=== PATIENT | female | born 1980 | race Caucasian/White ===

== ENCOUNTER 2024-03-09 15:29 | Inpatient (IN) | payer OTHER, SELFPAY ==
[2024-03-09] VITALS (11 sets, daily range): BP systolic 95–113; BP diastolic 59–69; BMI 22.6
--- NOTE | 2024-03-09 08:20 | ED.GENMED ---
History of Present Illness
General
Chief Complaint: Abdominal Pain
Source: patient
Time Seen by Provider: 03/09/24 08:10
Travel History
Have you had any contact with someone who has COVID-19?: No
Do you have any symptoms of coronavirus? Fever > 100 degrees, chills, cough, shortness of breath, sore throat, loss of taste or smell, muscle aches, or headache?: No
History of Present Illness
History of Present Illness:
43-year-old female with history of Crohn's disease presents complaining of worsening abdominal pain nausea and diarrhea over the past several weeks. She saw edge sander a week ago and they continue her mesalamine. She denies any blood in
the diarrhea. She notes fatigue and weight loss as well. She notes diffuse abdominal pain. No other complaints at this time
Phy Exam
Physical Exam
Physical Exam:
General: Well-appearing female no acute respiratory distress
HEENT: Normocephalic atraumatic neck is supple
Heart: Regular rate and rhythm no murmurs
Lungs: Clear no wheeze or rales
Abdomen is soft tender to palpation in the periumbilical region. Nondistended no guarding rebound normal bowel sound
Extremities: No cyanosis
Course
Orders/Labs/Results
Orders:
Orders
03/09/24 08:18
CT Abd/pel W Iv And Oral Contr Urgent
Comment:
Reason For Exam: abdominal pain, crohns
Iohexol [Omnipaque] See Protocol PO NOW STA
Test Result ONCE
03/09/24 09:06
Complete Blood Count/With Diff Urgent
Comprehensive Metabolic Panel Urgent
HCG, Serum Qualitative Screen Urgent
Lipase Urgent
Urinalysis Reflex To Culture Urgent
Date Specimen was Collected: 03/09/24
Time Specimen was Collected: 08:38
Urine Microscopic Reflex Cult Urgent
Urine Culture Urgent
JAIME Source: U
Specimen Description:
Date Specimen was Collected: 03/09/24
Time Specimen was Collected: 08:38
03/09/24 13:01
STOOL [C difficile Antigen & Toxins] Urgent
JAIME Source: Feces/Stool
Specimen Description:
Date Specimen was Collected: 03/09/24
Time Specimen was Collected: 14:13
Stool Culture Urgent
JAIME Source: Feces/Stool
Specimen Description:
Date Specimen was Collected: 03/09/24
Time Specimen was Collected: 14:13
03/09/24 13:05
0.9% Sodium Chloride 1000 ml [Nss] 1,000 ml IV BOLUS
03/09/24 13:46
Ova & Parasites Giardia/Crypto AG [Giardia/Cryptosporidium Ag] Urgent
JAIME Source: Feces/Stool
Specimen Description:
Date Specimen was Collected: 03/09/24
Time Specimen was Collected: 14:13
Yersinia Culture-Stool Urgent
JAIME Source: Feces/Stool
Specimen Description:
Date Specimen was Collected: 03/09/24
Time Specimen was Collected: 14:13
Abnormal Lab Results
03/09/24
09:06
WBC 15.9 H 10^3/uL
(4.8-10.8)
RBC 3.56 L 10^6/uL
(4.20-5.40)
Hgb 10.9 L g/dL
(12.0-16.0)
Hct 31.4 L %
(37.0-47.0)
Abs Immat Gran (auto) 0.1 H 10^3/uL
(0-0.05)
Absolute Neuts (auto) 13.4 H 10^3/uL
(1.4-6.5)
Absolute Monos (auto) 0.9 H 10^3/uL
(0.1-0.6)
Immature Gran % 0.6 H %
(0-0.5)
Neutrophils % 84.5 H %
(42.2-75.2)
Lymphocytes % 7.5 L %
(20.5-51.1)
Sodium 131 L mmol/L
(135-145)
Ur Occult Blood Reflex 3+ A
(Negative)
Urine Nitrite (Reflex) Positive A
(Negative)
Urine Bacteria (Reflex) Many A
(Negative)
03/09/24 09:06
03/09/24 09:06
Vital Signs
Initial and Last Documented VS:
Initial Vital Signs
Temp Pulse Resp BP Pulse Ox
98.0 F 90 16 95/69 100
03/09/24 08:05 03/09/24 08:05 03/09/24 08:05 03/09/24 08:05 03/09/24 08:05
Last Documented Vital Signs
Temp Pulse Resp BP Pulse Ox
98.0 F 75 16 100/62 98
03/09/24 08:05 03/09/24 08:35 03/09/24 08:35 03/09/24 13:00 03/09/24 13:00
MDM/Problems Addressed
Differential Diagnosis Includes:
Abdominal pain. History of Crohn's. Differential could include flare of Crohn disease versus constipation versus viral illness
Will check labs. CT with oral and IV contrast pending.
*Critical Care Note
Total Time (30-74mins, 75-104mins- exclusive of procedures): Not Applicable
Update Note
Update Note:
CT shows diffuse colonic inflammation as well as inflammation of the terminal ileum suggestive of Crohn's flare. White blood cell count is 15.9. Discussed with GI who saw the patient. Stool studies ordered. Fluids ordered. Will admit to
hospital for Crohn's flare
ED Attending Note
-
Portions of this chart may have been created with voice recognition software.� Occasional wrong word or��sound alike� substitutions may have occurred due to the inherent limitations of voice recognition software.
Discharge Plan
Departure
Patient Disposition: Admit
Date of Disposition: 03/09/24
Time of Disposition: 14:35
Admit to: Telemetry
Presentation/result/management discussed w/ accepting MD/DO: Hospitalist
Discharge Problem:
Abdominal pain
Prescriptions:
No Action
loperamide 2 mg Capsule
2 mg PO QID PRN (Reason: diarrhea)
bisoprolol fumarate 10 mg Tablet
10 mg PO QPM
losartan-hydrochlorothiazide 50-12.5 mg Tablet
1 tab PO QPM
drospirenone-ethinyl estradiol [Vestura (28)] 3-0.02 mg Tablet
1 tab PO DAILY@1999
Visbiome 112.5 billion cell Capsule
1 cap PO BID
cholecalciferol (vitamin D3) 50 mcg (2,000 unit) Tablet
50 mcg PO DAILY PRN (Reason: supplement)
mesalamine 400 mg capsule (with del rel tablets)
800 mg PO TID
Muscle Spasm Herbal Supplement
2 tab PO DAILYPRN PRN (Reason: spasms)
Patient Comments:
03/09/2024, pt. states that it is called 'N[place]' and it is for 'spasms'.
Referrals:
PRIVATE,PHYSICIAN [Family Provider] -
Interventions
Interventions:
*Risk Screen - Suicide Last Done: 03/09/24 08:30
*General Assessment Last Done: 03/09/24 08:30
*Neglect/Abuse Screening Last Done: 03/09/24 08:30
ED- Fall Risk Assessment Last Done: 03/09/24 08:30
*ED COVID-19 Vaccine History Last Done: 03/09/24 08:05
GT-Qsszbj-Lrjwvkbnzj Assessment Last Done: 03/09/24 08:30
Discharge Date and Time
Print Language: Cape Verdean
[2024-03-09] MEDS: OMNIPAQUE 50 ML PO (08:35)
[2024-03-09 09:17] LABS: Urine Albumin Negative (Neg - Trace); Urine Bilirubin Negative (Negative); Urine Character Clear (Clear); Urine Color Yellow; Urine Glucose Negative (Negative); Urine Ketone Negative (Negative); Urine Leukocyte Negative (Negative); Urine Nitrite Positive (Negative); Urine Occult Blood 3+ (Negative); Urine Specific Gravity 1.015 (<1.030); Urine Urobilinogen Negative (Neg - 1+)
[2024-03-09 09:21] LABS: % Basophils 0.4 % (0-2); % Eosinophils 1.1 % (0-6); % Immature Granulocytes 0.6 % (0-0.5); % Lymphocytes 7.5 % (20.5-51.1); % Monocytes 5.9 % (1.7-9.3); % Neutrophils 84.5 % (42.2-75.2); Absolute Basophils 0.1 10^3/uL (0-0.2); Absolute Eosinophils 0.2 10^3/uL (0-0.7); Absolute Immature Granulocytes 0.1 10^3/uL (0-0.05); Absolute Lymphocytes 1.2 10^3/uL (1.2-3.4); Absolute Monocytes 0.9 10^3/uL (0.1-0.6); Absolute Neutrophils 13.4 10^3/uL (1.4-6.5); Hematocrit 31.4 % (37.0-47.0); Hemoglobin 10.9 g/dL (12.0-16.0); Mean Corp Hgb Conc. 34.7 g/dL (33.0-37.0); Mean Corpuscular Hgb 30.6 pg (27.0-31.0); Mean Corpuscular Volume 88.2 fL (81.0-99.0); Mean Platelet Volume 8.7 fL (7.4-10.4); Nucleated Red Blood Cells % 0 %; Platelet Count 388 10^3/uL (130-400); Red Blood Cell Count 3.56 10^6/uL (4.20-5.40); Red Cell Dist. Width 13.3 % (11.5-14.5); White Blood Cell Count 15.9 10^3/uL (4.8-10.8)
[2024-03-09 09:28] LABS: HCG, Serum Qualitative Screen Negative
[2024-03-09 09:33] LABS: ALT (SGPT) 15 U/L (0-35); AST (SGOT) 15 U/L (14-36); Alkaline Phosphatase 72 U/L (38-126); Blood Urea Nitrogen 16 mg/dl (7-17); Calcium 9.4 mg/dl (8.4-10.2); Carbon Dioxide 22 mmol/L (22-30); Chloride 103 mmol/L (98-107); Estimated Creatinine Clearance 87 ml/min; Glucose 94 mg/dl (70-99); Lipase 63 U/L (23-300); Potassium 3.8 mmol/L (3.5-5.1); Sodium 131 mmol/L (135-145); Total Bilirubin 0.5 mg/dl (0.2-1.3); Total Protein 7.1 g/dl (6.3-8.2); eGFR > 60.00
[2024-03-09 09:53] LABS: Urine Bacteria Many (Negative)
[2024-03-09 09:56] LABS: Urine Red Blood Cell 0-2 /HPF (0-2); Urine White Cell 0-2 /HPF (0-5)
[2024-03-09] MEDS: NSS 1000 IV (13:18)
--- NOTE | 2024-03-09 14:20 | CON.GI ---
Addendum entered and electronically signed by Fransisco Carter MD 03/09/24 15:05:
Patient seen and examined with video senior support analyst service, agree with respecters note. The patient is a 43-year-old female, [facility] [place] with history of Crohn's of the small and large intestine. She was on 2.4 g of mesalamine
daily as maintenance, though recently had to decrease her medications. The past several weeks she has been noticing increasing frequency, with crampy abdominal pain, 10-15 bowel movements a day with some mild weight loss. She did see a
quality control lab technician about this for a few and is planned on having endoscopy and colonoscopy later this month. She denies any fever, chills, recent antibiotics or sick contacts. She never had any significant flares in the past several years and has
had quiescent disease. She is no history of strictures or fistulas. Currently exam she has mild diffuse tenderness but no rebound or guarding, has a leukocytosis and mild anemia. CT scan shows ileocolitis without complication. Most likely
etiology is Crohn's flare, especially given her decreased medications and length of symptoms, though superimposed infection is not excluded. For now we will start Flagyl, IV fluids, and check stool studies, hopefully at least some back tomorrow at
which point would likely start steroids and even possible discharge given mild to moderate flare, with outpatient follow-up already in place.
Original Note:
Consultation
-
Date/Time Consultation Requested: 03/09/241399
Date/Time Consultation Performed: 03/09/241399
Requesting Provider: ZACHARY Galeas
Performing Provider: Dr. Carter/SUSHANT Kebede
Reason for Consultation: diarrhea, Crohns
Medical History
Chief Complaint / HPI
Chief Complaint: diarrhea, pain, crohns
History of Present Illness:
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
a day as well as probiotics. She had medications available to her up until approximately 2-1/2 weeks ago when she had to dose reduce because of lack of meds. She then started taking 400 mg 3 times a day. At that time she started to have increase
in bowel movements approximately 10-15 a day that were watery and brown in color. She did also start to develop subjective fevers and chills as well as aching abdominal discomfort that would improve with defecation. She did not have a thermometer
therefore she was unable to check her temperature. She denies any nausea, vomiting, melena, hematochezia, mucoid stools, dysphagia or odynophagia. No early satiety or unintentional weight loss. She has no sick contacts, changes in medications,
antibiotics, icsx-nls-emardai supplements, raw or spoiled food or travel. The patient did arrange to see Dr. Amy Arce (GI in [facility]) and has an endoscopy scheduled on 03/31/2024 and colonoscopy schedule 04/04/2024. She states that
she was prescribed esomeprazole as well as mesalamine 800 mg 3 times daily that needs to be picked up at [facility]. The patient was able to go back to her normal dose of mesalamine 800 mg 3 times daily approximately 5 days ago however she has not had any
improvement in her symptoms. Because of persistent diarrhea 10-15 bowel movements a day and dizziness she proceeded to the emergency room.
Past Medical History
Past Medical History: GERD, HTN and Other (Crohn's of the small and large intestine (Diagnosed 8 years ago), Uterine fibroid)
Past Surgical History:
Social History
Tobacco: Smoker
Alcohol: None
Drug: None
Living: Other ([place] refugee living with support system here in , sister)
Family History
Family History: Other (No family history of colon cancer or inflammatory bowel disease)
Allergies / Home Medications
Allergy/AdvReac Type Severity Reaction Status Date / Time
No Known Allergies Allergy Unverified 03/09/24 08:05
�Medication �Instructions �Recorded
Lactobac no.2-Bifidobac no.1-S. 1 cap PO BID 03/09/24
thermo 112.5 billion cell capsule
(Visbiome)
Muscle Spasm Herbal Supplement 2 tab PO DAILYPRN PRN spasms 03/09/24
bisoprolol fumarate 10 mg tablet 10 mg PO QPM 03/09/24
cholecalciferol (vitamin D3) 50 50 mcg PO DAILY PRN supplement 03/09/24
mcg (2,000 unit) tablet
drospirenone 3 mg-ethinyl 1 tab PO DAILY@199903/09/24
estradiol 0.02 mg tablet (Vestura
(28))
loperamide 2 mg capsule 2 mg PO QID PRN diarrhea 03/09/24
losartan 50 mg-hydrochlorothiazide 1 tab PO QPM 03/09/24
12.5 mg tablet
mesalamine 400 mg capsule (with 800 mg PO TID 03/09/24
delayed release tablets inside)
Review of Systems
-
All other systems: A 12 pt ROS was Negative except as stated above in HPI
Vital Signs
Temp Pulse Resp BP Pulse Ox
98.0 F 75 16 100/62 98
03/09/24 08:05 03/09/24 08:35 03/09/24 08:35 03/09/24 13:00 03/09/24 13:00
Physical Exam
Exam
General: No Apparent Distress
HEENT: Anicteric
Respiratory: Clear
Cardiac: Regular Rhythm
GI: Soft, Non Distended, Normal Bowel Sounds and Tender (Mild diffuse tenderness)
Musculoskeletal: No Edema
Skin: Warm and Dry
Neuro: AO x 3
Psych: Calm
Results
WBC 15.9 10^3/uL (4.8-10.8) H 03/09/24 09:06
Hgb 10.9 g/dL (12.0-16.0) L 03/09/24 09:06
Hct 31.4 % (37.0-47.0) L 03/09/24 09:
MCV 88.2 fL (81.0-99.0) 03/09/24 09:06
Plt Count 388 10^3/uL (130-400) 03/09/24 09:06
Absolute Neuts (auto) 13.4 10^3/uL (1.4-6.5) H 03/09/24 09:06
Sodium 131 mmol/L (135-145) L 03/09/24:06
Potassium 3.8 mmol/L (3.5-5.1) 03/09/24 09:
Chloride 103 mmol/L (98-107) 03/09/24 09:06
Carbon Dioxide 22 mmol/L (22-30) 03/09/24 09:06
BUN 16 mg/dl (7-17) 03/09/24 09:06
Creatinine 0.8 mg/dL (0.6-1.0) 03/09/24 09:06
Calcium 9.4 mg/dl (8.4-10.2) 03/09/24 09:06
Total Bilirubin 0.5 mg/dl (0.2-1.3) 03/09/24 09:06
AST 15 U/L (14-36) 03/09/24 09:06
ALT 15 U/L (0-35) 03/09/24 09:06
Alkaline Phosphatase 72 U/L (38-126) 03/09/24 09:06
Lipase 63 U/L (23-300) 03/09/24 09:06
Diagnostic Image Results:
CT abdomen and pelvis with oral and IV contrast 03/09/2024:
Diffusely abnormal colon and 8 cm of the terminal ileum. Consistent with the history of Crohn's disease. Mildly prominent but normal sized mesenteric lymph nodes.
No abscess. No free fluid or fluid collection. No free air. Appendix within the limits of normal.
Mild hepatosplenomegaly.
Uterine fibroids, known.
Electronically signed by Bing Gaming MD 03/09/2024 12:27 P
Prior GI Procedures:
EGD: Never had
Colonoscopy: Approximately 6 years ago in [facility]. Showed Crohn's of the small intestine and large intestine.
Assessment / Plan
-
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
a day as well as probiotics. She had medications available to her up until approximately 2-1/2 weeks ago when she had to dose reduce because of lack of meds. She then started taking 400 mg 3 times a day. At that time she started to have increase
in bowel movements approximately 10-15 a day that were watery and brown in color. She did also start to develop subjective fevers and chills as well as aching abdominal discomfort that would improve with defecation. WBC 15.9, hemoglobin 10.9,
hematocrit 31.4, platelet 338, MCV 88.2, MCH 30.6, sodium 131, potassium 3.8, chloride 103, CO2 22, BUN 16, creatinine 0.8, glucose 94, total bilirubin 0.5, AST 15, ALT 15, alk phos 72, albumin 4.0, lipase 63, hCG negative. CT of the abdomen and
pelvis with IV and oral contrast shows diffusely abnormal colon and 8 cm of the terminal ileum. Consistent with history is of Crohn's disease. Mildly prominent but normal sized mesenteric lymph nodes. No abscess. No free fluid or fluid
collection. No free air. Appendix within normal limits. Mild hepatosplenomegaly. Uterine fibroids, known. UA positive for blood, nitrate and bacteria. Urine culture pending.
Impression:
Diarrhea, In the setting of reduction in her mesalamine most likely Crohn's flare.
Leukocytosis with subjective fevers, chills
HTN
Plan:
-Check stool for CDiff, Culture, O&P, giardia
-Will likely start steroids if stool negative for Cdiff as this seems like Crohns flare
-Patient has follow up with Dr. Amy Arce for EGD and Colonoscopy the end of this month. Has Mesalamine 800 mg TID at [facility] pharmacy available for her to paick up.
-Recommend Social Service consult to see if there is any assistance needed to obtain meds for patient for [place] being refugee.
-CBC, BMP in am
-Low residue diet as tolerated
-Start Flagyl IV q 8 hrs
-Florastor BID
-Further recommendations to be forthcoming
-
-
Thank you for consultation and allowing me to participate in the patient's care. Please call the health information administrator GI physician during the after hours with any questions or concerns.
--- NOTE | 2024-03-09 14:45 | HPS.HSE ---
Addendum entered and electronically signed by SUSHANT Crabtree 03/09/24 15:25:
Asymptomatic pyuria
-Given history of 2 weeks diarrhea we will follow urine culture
-Will hold on ABX for UTI at present time
Original Note:
Family Physician
-
Family Physician: PHYSICIAN PRIVATE
Chief Complaint
-
Abdominal pain, nausea, diarrhea x 2 weeks
History of Present Illness
43-year-old female with history of Crohn's disease complaining of abdominal pain, nausea and diarrhea over the past 2 weeks. She reports approximately 10-15 episodes of some solid stool mixed with water and abdominal cramping. She saw her
liquefied petroleum gasfitter 1 week ago and had her mesalamine increased from 1200 mg once a day to 800 mg 3 times daily. She states this usually does help when she has an exacerbation but this time it did not. She has only been in the [place] for 6
months as she is a refugee from [facility]. She denies any sick contacts recent travel, antibiotics or raw foods. She denies any blood or mucus in the stool, fever, chills, chest pain, palpitations, shortness breath, cough, urinary symptoms. Other
past medical history includes Crohn's disease Dx 2016 with only 2 exacerbations, hypertension, fibromyalgia, renal artery stenosis age 24.
Medical History
Past Medical History
Past Medical History: Reports Other
Additional Past Medical History:
Crohn's disease Dx 2016 with history of 2 exacerbations
hypertension
fibromyalgia
renal artery stenosis Dx age 24
Active smoker
Past Surgical History: Reports Other
Additional Past Surgical History:
section
Bilateral breast augmentation with implants
Social History
Tobacco: Smoker (11/11 ppd x 18 years )
Alcohol: None
Drug: None
Personal:
Living: With Family
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
Family History
Family History: Other (Mother living HTN, 1 sister healthy, father unknown)
Allergies / Home Medications
Allergies reflects when Allergies were last updated in [employer].
Home Medications with original date entered in [employer]
Allergy/Medication List:
Allergies
Allergy/AdvReac Type Severity Reaction Status Date / Time
No Known Allergies Allergy Unverified 03/09/24 08:05
Home Medications
Lactobac no.2-Bifidobac no.1-S. thermo 112.5 billion cell capsule (Visbiome) 1 cap PO BID 03/09/24
Muscle Spasm Herbal Supplement 2 tab PO DAILYPRN PRN spasms 03/09/24
bisoprolol fumarate 10 mg tablet 10 mg PO QPM 03/09/24
cholecalciferol (vitamin D3) 50 mcg (2,000 unit) tablet 50 mcg PO DAILY PRN supplement 03/09/24
drospirenone 3 mg-ethinyl estradiol 0.02 mg tablet (Vestura (28)) 1 tab PO DAILY@199903/09/24
loperamide 2 mg capsule 2 mg PO QID PRN diarrhea 03/09/24
losartan 50 mg-hydrochlorothiazide 12.5 mg tablet 1 tab PO QPM 03/09/24
mesalamine 400 mg capsule (with delayed release tablets inside) 800 mg PO TID 03/09/24
Review of Systems
-
History Source: Patient and Other (Audio data processing specialist name [id number])
A 12 point ROS was completed and negative except as noted: Yes
Constitutional: Denies Fever or Chills
EENT: Denies Sore Throat or Runny Nose
Respiratory: Denies Cough or Trouble Breathing
Cardiac: Denies Chest Pain, Diaphoresis, Palpitations or Syncope
Abdomen/GI: Reports Abdominal Pain, Nausea, Vomiting and Diarrhea; Denies Constipated, Bloody Stools or Black Stools
: Denies Dysuria, Frequency, Flank Pain, Incontinence, Difficulty Voiding or Dark Urine
Musculoskeletal: Denies Joint Pain or Edema
Skin: Denies Itching or Rash
Neurological: Denies Dizzy or Weakness
Endocrine: Reports No Symptoms
Hematologic/Lymphatic: Reports No Symptoms
Psych: Reports Calm
Physical Exam
Vital Signs
Vital Signs
Temp Pulse Resp BP Pulse Ox
98.0 F 75 16 100/62 98
03/09/24 08:05 03/09/24 08:35 03/09/24 08:35 03/09/24 13:00 03/09/24 13:00
Physical Exam
General: Pain; No Fever or Chills
HEENT: NormoCephalic, Anicteric, Moist mucous membranes, PERRLA, Rule Conjunctivae and No Ptosis
Respiratory: Clear; No Wheezes, Rales or Rhonchi
Cardiac: S1/S2 and Regular Rhythm; No Murmur, Rub, Gallop or Peripheral Edema
GI: Soft, Non Distended, Normal Bowel Sounds, Tender (Left mid abdomen, right upper abdomen) and No Hepatosplenomegaly
Rectal: Deferred by Provider
Genito-urinary: Deferred by me
Musculoskeletal: No Clubbing, No Cyanosis and No Edema
Skin: Warm and Dry; No Rash or Jaundice
Neuro: AO x 3, No Motor Deficits, Nonfocal/grossly intact, Cranial Nerves Intact and No Sensory Deficits; No Slurred Speech, Facial Droop or Tremors
Psych: Calm
Laboratory Results
-
03/09/24 09:06
03/09/24 09:06
Laboratory Results
Total Bilirubin 0.5 mg/dl (0.2-1.3) 03/09/24 09:06
AST 15 U/L (14-36) 03/09/24 09:06
ALT 15 U/L (0-35) 03/09/24 09:06
Alkaline Phosphatase 72 U/L (38-126) 03/09/24 09:06
Lipase 63 U/L (23-300) 03/09/24 09:06
Data Reviewed
-
CT Scan: Report Reviewed by me
Lab Data: Labs Reviewed by me
Impression/Plan
-
Impression/plan:
Admit to [facility]
#Acute on chronic Crohn's exacerbation with Diarrhea
History Dx 2016 only 2 exacerbations never required inpatient hospitalization
WBC 15.9 with left shift, afebrile, HR 75, 100/62
-Continue mesalamine 800 mg p.o. 3 times daily, was on prior 1200 mg once a day x 8 years
-Consult GI
-Low residue diet
-IV Zofran
-IV morphine moderate�severe pain
-IV NSS 1 L given in ER will continue LR 100 cc/h
-Check stool studies, stool WBC, C. difficile, O&P, norovirus
-Follow CBC, CMP, blood cultures x [address] abdomen pelvis with IV and oral contrast:
Diffusely abnormal: An 8 cm of the terminal ileum consistent with history of Crohn's. Mildly prominent but normal sized mesenteric lymph nodes. No abscess free fluid or fluid collection
Mild hepatomegaly
Uterine fibroids- known
#Nicotine abuse
1/4 pack/day x 18 years
-Will give nicotine transdermal patch 7mg
#HTN�benign
-Hold losartan/HCTZ, lisinopril 10 mg every afternoon due to low BP
#Hx renal artery stenosis Dx age 24
Creat 0.8, CrCl 87
-Follow BMP
#Hormonal control
#Hx uterine fibroids
May continue Vestura 1 tab daily
#Fibromyalgia Hx
DVT prophylaxis
Subcu Lovenox
Full code
--- NOTE | 2024-03-09 15:02 | W.PN.UPDATE ---
Update Note
Progress Note Update
I saw and examined the patient.
The ADMINISTRATIVE OPERATIONS COORDINATOR's note was reviewed and I agree with the note.
This note is an addendum to H&P for billing purposes
Comment:
43-year-old female past medical history of primary hypertension, renal artery stenosis was present history of abdominal pain, nausea vomiting and diarrhea. Patient with Crohn's diagnosis. States of abdominal pain and approxmiately 10 loose bowel
movements. No recent antibiotics exposure. No sick contacts. and was eval by gastroenterology in the ER. Stool studies was ordered.
General no acute distress
Cardiac S1-S2 regular rate rhythm
Lungs are clear to auscultation bilaterally
Abdomen positive bowel sounds soft tender periumbilical region, no guarding or rigidity.
Extremities no edema
Neuro awake alert and oriented
A/P
Nausea vomiting abdominal pain secondary to acute on chronic Crohn's flareup
Diet per GI
Start patient on LR fluids.
Stool studies ordered and pending
Started on Flagyl IV per GI.
If stool studies negative can can consider starting Imodium if with severe diarrhea
Steroids per GI
Pain control
Antinausea meds
GI recommendation
Primary hypertension
Renal artery stenosis
Blood pressure control
As needed blood pressure meds for now
Hold p.o. meds
Avoid hypotension
Leukocytosis likely stress reaction
Await stool cultures
Ucx in lab
If spikes fever check blood culture
trend for now.
Mild hyponatremia secondary dehydration
Start patient IV fluids
If worsening sodium check urine studies
Continue to trend BMP
Tobacco abuse
nicotine patch.
DVT prophylaxis Lovenox
I spent a total of 78 minutes with the patient or on the floor. More than 50% of this time involved counseling and coordination of care.
[2024-03-09] MEDS: FLAGYL 500 MG 100 IV ×2 (15:09→23:12)
--- NOTE | 2024-03-09 16:17 | W.PN.UPDATE ---
Update Note
Progress Note Update
C. difficile toxin noted to be negative though antigen positive. Patient denies any recent antibiotics though does have a sick contact at home for the past couple of days. Will plan flexible sigmoidoscopy tomorrow with sedation. I discussed with
her via the double backer line.
[2024-03-09] MEDS: LR 1000 IV (17:27)
[2024-03-09] MEDS: NICODERM TRANSDERMAL 7 MG TRANSDERM (17:27)
[2024-03-09] MEDS: LOVENOX 40 MG SC (17:49)
[2024-03-09] MEDS: ASACOL, DELZICOL DR 800 MG PO ×2 (18:16→21:48)
[2024-03-09] MEDS: MELATONIN 3 MG PO (21:48)
[2024-03-09] MEDS: FLORASTOR 250 MG PO (21:48)
[2024-03-09] MEDS: MORPHINE SULFATE 4 MG IV (21:59)
[2024-03-10 03:00] VITALS: BP 91/54
[2024-03-10] MEDS: LR 1000 IV ×2 (04:36→19:50)
[2024-03-10 07:30] VITALS: BP 103/65
--- NOTE | 2024-03-10 08:25 | PTOTSP ---
Reviewed chart and s/w RN who reports PT is not warranted as pt is independently ambulating and has no skilled PT needs. Will sign off.
[2024-03-10 08:27] LABS: % Basophils 0.4 % (0-2); % Eosinophils 2.5 % (0-6); % Immature Granulocytes 0.4 % (0-0.5); % Lymphocytes 11.2 % (20.5-51.1); % Monocytes 7.4 % (1.7-9.3); % Neutrophils 78.1 % (42.2-75.2); Absolute Eosinophils 0.3 10^3/uL (0-0.7); Absolute Lymphocytes 1.2 10^3/uL (1.2-3.4); Absolute Monocytes 0.8 10^3/uL (0.1-0.6); Absolute Neutrophils 8.6 10^3/uL (1.4-6.5); Hemoglobin 9.8 g/dL (12.0-16.0); Mean Corp Hgb Conc. 33.8 g/dL (33.0-37.0); Mean Corpuscular Hgb 30.4 pg (27.0-31.0); Mean Corpuscular Volume 90.1 fL (81.0-99.0); Mean Platelet Volume 8.9 fL (7.4-10.4); Nucleated Red Blood Cells % 0 %; Platelet Count 307 10^3/uL (130-400); Red Blood Cell Count 3.22 10^6/uL (4.20-5.40); Red Cell Dist. Width 13.2 % (11.5-14.5)
[2024-03-10 08:57] LABS: Blood Urea Nitrogen 7 mg/dl (7-17); Calcium 9.1 mg/dl (8.4-10.2); Carbon Dioxide 22 mmol/L (22-30); Chloride 105 mmol/L (98-107); Estimated Creatinine Clearance 100 ml/min; Glucose 90 mg/dl (70-99); Potassium 3.8 mmol/L (3.5-5.1); Sodium 132 mmol/L (135-145); eGFR > 60.00
[2024-03-10] MEDS: ASACOL, DELZICOL DR 800 MG PO (08:57)
[2024-03-10] MEDS: FLAGYL 500 MG 100 IV (08:59)
[2024-03-10] MEDS: FLORASTOR 250 MG PO ×2 (09:00→21:03)
[2024-03-10] MEDS: NICODERM TRANSDERMAL 7 MG TRANSDERM (09:00)
--- NOTE | 2024-03-10 11:04 | W.PN.HOSP.TC ---
Today's Communication/Plan
-
Continue with fluids for additional 24 hours.
Monitor for diet tolerance
Started on prednisone
Monitor stool output
Assessment / Plan
Assessment / Plan
#Acute on chronic Crohn's exacerbation
#Diarrhea likely multifactorial due to Cryptosporidium versus C. difficile versus Crohn's exacerbation
-Continue mesalamine 800 mg p.o. 3 times daily, was on prior 1200 mg once a day x 8 years
-IV Zofran
-IV morphine moderate�severe pain
-Continue with IVF
-C. difficile antigen positive, toxin negative. Cryptosporidium positive. Norovirus negative.
-CT abdomen pelvis noted with terminal ileitis
-Flex sig with ulcers in the colon. GI to start patient on steroids. Also plan to start treatment for C. difficile.
# Asymptomatic bacteriuria
-If develops symptoms then to start antibiotics.
#Nicotine abuse
1/4 pack/day x 18 years
-Will give nicotine transdermal patch 7mg
#HTN�benign
-Hold losartan/HCTZ, lisinopril 10 mg every afternoon due to low BP
#Hx renal artery stenosis Dx age 24
Creat 0.8, CrCl 87
-Follow BMP
#Hormonal control
#Hx uterine fibroids
May continue Vestura 1 tab daily
#Fibromyalgia Hx
DVT prophylaxis
Subcu Lovenox
Full code
Anticipated Discharge: > 48 hours
Subjective/Interval History
-
Date of Service: March 10, 2024
Patient was seen and examined
Evaluated using video translation line at bedside
Patient states of multiple loose bowel movements yesterday
States of abdominal discomfort
Denies any nausea or vomiting
Denies any dysuria or increase in urgency or frequency
States she was checked for HIV back in [place] was found to be negative.
Objective Data
-
Labs:
Laboratory Results
05/03/24
08:07
WBC 11.0 H
Hgb 9.8 L
Hct 29.0 L
Plt Count 307 D
Sodium 132 L
Potassium 3.8
Chloride 105
Carbon Dioxide 22
BUN 7
Creatinine 0.7
Glucose 90
Calcium 9.1
Vital Signs:
Vital Signs
Temp Pulse Resp BP Pulse Ox
97.6 F 79 18 103/65 99
03/10/24 07:30 03/10/24 07:30 03/10/24 07:30 03/10/24 07:30 03/10/24 07:30
Physical Exam
-
General: Well Developed and No Apparent Distress
HEENT: Normocephalic, Atraumatic and Moist Mucous Membranes
Respiratory: Clear to Auscultation
Cardiac: Regular Rhythm and S1/S2; Negative Murmur, Rub or Gallop
GI: Soft, Nondistended, Normal Bowel Sounds and Tender (Suprapubic and left lower quadrant); Negative Organomegaly
Rectal: Deferred by Provider
Musculoskeletal: No Clubbing, No Cyanosis and No Edema
Skin: Negative Rash
Neuro: Awake, No Motor Deficits and Nonfocal/Grossly Intact
Psych: Calm
Data Reviewed
-
Total Time Spent with Patient (in minutes): 56
--- NOTE | 2024-03-10 11:57 | CM ---
CM following re: discharge planning.
Reviewed pt's chart, met with pt.
Pt is a 43 year old Dutch/Ugandan speaking female admitted with primary dx of Crohn's disease, nausea and vomiting.
Pt reports she has been living in [facility] with her 13 year old son for the past 6 month, invited by her sister Lisy with [employer] for [facility] temporary status ([facility]). Pt lives with her son in sister's house, 2 steps to enter. Pt reports her is a
medical doctor and his is fighting the war in [facility]. Emotional support offered and provided.
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
PCP: Susana Benitez
Pharmacy: [facility]
D/C plan; home with no needs. Sister to transport at discharge.
CM will follow with discharge plan updates as hospitalization progresses
--- NOTE | 2024-03-10 13:30 | W.PN.UPDATE ---
Update Note
Progress Note Update
I updated pt about plan
Stressed importance of outpatient follow up
Discussed risks of steroids (infection, rash, insomnia, OP, etc) and use for short term
Discussed plan of stopping 5ASA and need for biologic therapy to d/w outpatient GI
Trial of dificid for CDI Ag positive, toxin neg lower suspicion cause of symptoms; will stop flagyl
Finishing Range Feeder [id number] used
D/w hospitalist as well
[2024-03-10 13:41] LABS: Magnesium 1.8 mg/dl (1.6-2.3); Phosphorus 3.2 mg/dl (2.5-4.5)
[2024-03-10] MEDS: LR IV (14:37)
[2024-03-10] MEDS: DELTASONE 40 MG PO (14:41)
[2024-03-10 15:30] VITALS: BP 109/59
[2024-03-10] MEDS: LOVENOX 40 MG SC (16:34)
[2024-03-10] MEDS: DIFICID 200 MG PO (21:03)
[2024-03-10] MEDS: MELATONIN 3 MG PO (21:03)
[2024-03-10 23:35] VITALS: BP 100/62
[2024-03-11] MEDS: LR 1000 IV (05:26)
[2024-03-11 06:00] VITALS: BMI 22.6
[2024-03-11 07:09] LABS: % Basophils 0.2 % (0-2); % Eosinophils 0.9 % (0-6); % Immature Granulocytes 0.4 % (0-0.5); % Lymphocytes 10.8 % (20.5-51.1); % Monocytes 5.5 % (1.7-9.3); % Neutrophils 82.2 % (42.2-75.2); Absolute Eosinophils 0.1 10^3/uL (0-0.7); Absolute Immature Granulocytes 0.1 10^3/uL (0-0.05); Absolute Lymphocytes 1.3 10^3/uL (1.2-3.4); Absolute Monocytes 0.7 10^3/uL (0.1-0.6); Absolute Neutrophils 9.9 10^3/uL (1.4-6.5); Hematocrit 30.2 % (37.0-47.0); Hemoglobin 10.4 g/dL (12.0-16.0); Mean Corp Hgb Conc. 34.4 g/dL (33.0-37.0); Mean Corpuscular Hgb 30.3 pg (27.0-31.0); Mean Platelet Volume 9.1 fL (7.4-10.4); Nucleated Red Blood Cells % 0 %; Platelet Count 339 10^3/uL (130-400); Red Blood Cell Count 3.43 10^6/uL (4.20-5.40); Red Cell Dist. Width 12.6 % (11.5-14.5)
[2024-03-11 07:30] VITALS: BP 125/81
[2024-03-11 07:34] LABS: Blood Urea Nitrogen 9 mg/dl (7-17); Calcium 9.7 mg/dl (8.4-10.2); Carbon Dioxide 19 mmol/L (22-30); Chloride 107 mmol/L (98-107); Estimated Creatinine Clearance 116 ml/min; Glucose 97 mg/dl (70-99); Sodium 135 mmol/L (135-145); eGFR > 60.00
[2024-03-11] MEDS: DIFICID 200 MG PO (07:50)
[2024-03-11] MEDS: DELTASONE 40 MG PO (07:50)
[2024-03-11] MEDS: FLORASTOR 250 MG PO (07:51)
[2024-03-11] MEDS: NICODERM TRANSDERMAL 7 MG TRANSDERM (07:51)
--- NOTE | 2024-03-11 08:01 | PTCARENOTE ---
Language line used to communicate w/ patient. Pt reports 'very little' ab pain. Assisted w/ ordering breakfast. Diarrhea overnight has slowed down. Denies nausea. Was resting comfortably when I came into the room. Pt is pleasant and calm. All
questions answered. Will continue to monitor.
--- NOTE | 2024-03-11 10:52 | W.PN.HOSP.TC ---
Today's Communication/Plan
-
Discharge
Assessment / Plan
Assessment / Plan
Gen-AAOx3, NAD
HEENT-NC, AT, anicteric, clear oral mm
Neck-supple
CV-reg, no M, +S1/S2
Lungs-clear B/L
Abd-soft, NT, ND
Ext-no edema
Musculoskeletal-no cyanosis, clubbing
Skin-warm and dry
Neuro-grossly non-focal
Psych-calm, cooperative
Acute on chronic Crohn's exacerbation
Diarrhea likely multifactorial due to Cryptosporidium versus C. difficile versus Crohn's exacerbation
Gastrology recommends discharge on prednisone taper, empiric Dificid. Outpatient follow-up.
-C. difficile antigen positive, toxin negative. Cryptosporidium positive. Norovirus negative.
-CT abdomen pelvis noted with terminal ileitis
-Flex sig with ulcers in the colon. GI to start patient on steroids. Also plan to start treatment for C. difficile.
Asymptomatic bacteriuria
-If develops symptoms then to start antibiotics.
Tobacco dependence
1/4 pack/day x 18 years
-Will give nicotine transdermal patch 7mg
Essential hypertension
-Hold losartan/HCTZ, lisinopril 10 mg every afternoon due to low BP
Hx renal artery stenosis Dx age 24
Creat 0.8, CrCl 87
-Follow BMP
Hormonal control
Hx uterine fibroids
May continue Vestura 1 tab daily
Fibromyalgia Hx
DVT prophylaxis
Subcu Lovenox
Full code
Dispo -medically stable for discharge today. Discussed with GI. Outpatient follow-up with PCP and gastroenterology.
32 minutes spent in discharge process.
Anticipated Discharge: Today
Subjective/Interval History
-
Date of Service: March 11, 2024
Patient seen and examined. Feeling better. Minimal abdominal pain. Mild diarrhea this morning. No other complaints. Utilized video language line for interpretation.
Objective Data
-
Labs:
Laboratory Results
03/11/24
06:18
WBC 12.0 H
Hgb 10.4 L
Hct 30.2 L
Plt Count 339
Sodium 135
Potassium 4.0
Chloride 107
Carbon Dioxide 19 L
BUN 9
Creatinine 0.5 L
Glucose 97
Calcium 9.7
Vital Signs:
Vital Signs
Temp Pulse Resp BP Pulse Ox
98.3 F 70 16 125/81 100
03/11/24 07:30 03/11/24 07:30 03/11/24 07:30 03/11/24 07:30 03/11/24 07:30
I&O
03/10/24 03/11/24 03/12/24
06:59 06:59 06:59
Intake Total 420 / 420
Balance 420 / 420
Review of Systems
-
Unable to obtain full review of systems at this time due to: Language Barrier
History Source: Patient
All other systems: Reviewed and negative
--- NOTE | 2024-03-11 13:05 | W.PN.GI.CBS2 ---
Today's Communication / Plan
-
steroid taper, outpatient gi follow up, discharge
Assessment / Plan
-
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
a day as well as probiotics. She had medications available to her up until approximately 2-1/2 weeks ago when she had to dose reduce because of lack of meds. She then started taking 400 mg 3 times a day. At that time she started to have increase
in bowel movements approximately 10-15 a day that were watery and brown in color. She did also start to develop subjective fevers and chills as well as aching abdominal discomfort that would improve with defecation. WBC 15.9, hemoglobin 10.9,
hematocrit 31.4, platelet 338, MCV 88.2, MCH 30.6, sodium 131, potassium 3.8, chloride 103, CO2 22, BUN 16, creatinine 0.8, glucose 94, total bilirubin 0.5, AST 15, ALT 15, alk phos 72, albumin 4.0, lipase 63, hCG negative. CT of the abdomen and
pelvis with IV and oral contrast shows diffusely abnormal colon and 8 cm of the terminal ileum. Consistent with history is of Crohn's disease. Mildly prominent but normal sized mesenteric lymph nodes. No abscess. No free fluid or fluid
collection. No free air. Appendix within normal limits. Mild hepatosplenomegaly. Uterine fibroids, known. UA positive for blood, nitrate and bacteria. Urine culture pending.
Impression:
Diarrhea, In the setting of reduction in her mesalamine most likely Crohn's flare.
Leukocytosis with subjective fevers, chills
HTN
Found to have CDI Ag + toxin neg
Flex sig with ulcerations in sigmoid/rectum c/w Crohn's
Plan:
-Plan dificid 10 days
- Prednisone taper reviewed with pt-
40 mg x 1 week
30 mg x1 week
20 mg x1 week
10 mg x 1 week
5 mg x 1 week
Should take vit D/Ca with steroids
discussed s/e of steroids insomnia, rash, bone density issues, etc - if has any s/e of steroids to call her outpatient GI
-Patient has follow up with Dr. Amy Arce for EGD and Colonoscopy the end of this month. Counseled her to call her outpatient GI to update her on her recent admission
- No need for 5ASA, probiotics or flagyl
-Low residue diet
- Needs outpatient biologic
D/w hospitalist, plan discharge today
GI will sign off pls call with ?s.
Subjective
Subjective
Date of Service: March 11, 2024
feels well less diarrhea/pain
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
Objective
Data Reviewed
Laboratory Data:
Laboratory Results
03/11/24 06:18
03/11/24 06:18
Laboratory Results
Phosphorus 3.2 mg/dl (2.5-4.5) 03/10/24 08:07
Magnesium 2.0 mg/dl (1.6-2.3) 03/11/24 06:18
Total Bilirubin 0.5 mg/dl (0.2-1.3) 03/09/24 09:06
AST 15 U/L (14-36) 03/09/24 09:06
ALT 15 U/L (0-35) 03/09/24 09:06
Alkaline Phosphatase 72 U/L (38-126) 03/09/24 09:06
Lipase 63 U/L (23-300) 03/09/24 09:06
Vital Signs and I&O:
Vital Signs
Temp Pulse Resp BP Pulse Ox
98.3 F 70 16 125/81 100
03/11/24 07:30 03/11/24 07:30 03/11/24 07:30 03/11/24 07:30 03/11/24 07:30
I&O
03/10/24 03/11/24 03/12/24
06:59 06:59 06:59
Intake Total 420 / 420
Balance 420 / 420
Physical Exam
Physical Exam
GI: Non Distended and Non Tender
[2024-03-11 14:00] VITALS: BP 129/80
--- NOTE | 2024-03-11 14:42 | W.DS.TRANS ---
DC Summary - Patient Relations Specialist
-
Discharge Instructions:
Discharge Diagnosis/Procedures Crohn's exacerbation
Diet Low Fiber,Other diet
Additional Diets Low lactose
Activity As tolerated
Driving Restrictions As prior to admission
Bathing Restrictions None
Instructions:
Stand-Alone Forms:
Changes to Home Medications: Yes
Discharge Medications:
DC Medications w/original date entered in [email or web address]
bisoprolol fumarate 10 mg tablet 10 mg PO QPM Blood Pressure 03/09/24
drospirenone 3 mg-ethinyl estradiol 0.02 mg tablet (Vestura (28)) 1 tab PO DAILY@1999 Hormonal Agent 03/09/24
loperamide 2 mg capsule 2 mg PO QID PRN diarrhea 03/09/24
cholecalciferol (vitamin D3) 50 mcg (2,000 unit) tablet 50 mcg PO DAILY supplement #0 tabs 03/11/24
fidaxomicin 200 mg tablet (Dificid) 200 mg PO BID #20 tabs 03/11/24
prednisone 10 mg tablet 10 mg PO DIRECTED #74 tabs 03/11/24
Home Medication Changes
Stop losartan/hydrochlorothiazide
Stop mesalamine
Pending Results: No
--- NOTE | 2024-03-11 15:18 | CM ---
CM reviewed chart, patient plan home with family, no needs. CM will continue to follow for discharge planning needs.
Plan; home no needs.
== END 2024-03-11 15:40 | disposition home or self-care (01) | DRG 387 ==
LOC: 4 WEST ACU 15:29
PROVIDERS: Internal Medicine Gastroenterology; Nurse Practitioner; Physician Assistant; ADMITTING PHYSICIAN Hospitalist; ATTENDING PHYSICIAN Hospitalist; CONSULT PHYSICIAN Internal Medicine Gastroenterology; EMERGENCY PHYSICIAN Emergency Medicine
PROC: 0DBN8ZX Excision of Sigmoid Colon, Via Natural or Artificial Opening Endoscopic, Diagnostic (ICD-10-PCS; 2024-03-10)
DX: K50.80 Crohn's disease of both small and large intestine without complications (principal); F17.200 Nicotine dependence, unspecified, uncomplicated; I10 Essential (primary) hypertension; K52.9 Noninfective gastroenteritis and colitis, unspecified
CPT/HCPCS: 88305; 74177; 80048; 80053; 81003; 81015; 83690; 83735; 84100; 84703; 85025; 87045; 87046; 87086; 87088; 87186; 87324; 87328; 87329; 87427; 87449; 87798; 88342; 96360; 99285; 99406; Q9967

== ENCOUNTER 2025-02-23 17:20 | Emergency (ER) | payer OTHER, SELFPAY ==
[2025-02-23 17:25] VITALS: BP 152/91
[2025-02-23 19:49] VITALS: BMI 18.9
--- NOTE | 2025-02-23 20:11 | ED.SKININJ ---
HPI-Injury
General
Chief Complaint: Bite
Source: patient and family (Sister is with her and translating from Mozambican)
Exam Limitations: none
Time Seen by Provider: 02/23/25 19:44
Nursing documentation reviewed up to this point in time: agreed with
History of Present Illness-Injury
Initial Injury comments:
44-year-old female with history of Crohn's disease, HTN presents for dog bite of her right hand. Her sister who is with her owns a grooming salon. They were in the salon when a passerby came in with her small dog wondering what services were
available. The patient reached down to pet the dog and the dog was 'nervous' (according to the shop van owner operator/sister) and bit her.The pet's van owner operator became flustered, told them the dog's Rabies vaccines are not up to date and ran out of the shop. They
have no contact information.
Pt's sister, who owns the shop, states she is very familiar with animals and feels certain this dog does not have rabies. They still are considering getting the Rabies immunizations but want to check to see if insurance will cover it.
It is Good Wednesday and most likely won't get in contact with Insurance for 3 days, Wednesday after . Informed that if they are concerned about rabies the series should start as soon as possible
They are requesting the tetanus immunization only at this time.
Past History
Past History
ED Past Medical History: HTN and Other (Crohn's)
ED Past Surgical History: and Gynecological
Review of Systems
Review of Systems
Allergies reviewed?: Yes
All Other Systems: ROS reviewed and negative except as documented in HPI and ROS
Skin: Reports other (abrasions base of right thumb dorsum of hand from dog bite)
Phy Exam
Physical Exam
Physical Exam:
PHYSICAL EXAMINATION:
General: no apparent distress, not acutely ill
Neuro: alert and oriented.
Psychiatric: well kept. interactive and cooperative
Musculoskeletal: Moves with ease. No bony tenderness to hand, full ROM.
Skin: Warm, pink. Several small some superficial, some deep and clean, no full thickness wounds, no erythema, no drainage or bleeding
Course
Orders/Labs/Results
Orders:
Orders
02/23/25 20:11
Tetanus/Diphth/Acelpertussis [Adacel] 0.5 ml IM .ONCE ONE
02/23/25 20:45
Rabies Vaccine (Pcec)/Pf [Rabavert Rabies Vacc W-Diluent] 2.5 unit IM .ONCE ONE
02/23/25 21:11
Rabies Immune Globulin/Pf [HyperRAB] 1,260 unit IM NOW STA
Vital Signs
Initial and Last Documented VS:
Initial Vital Signs
Temp Pulse Resp BP Pulse Ox
98.5 F 85 18 152/91 100
02/23/25 17:25 02/23/25 17:25 02/23/25 17:25 02/23/25 17:25 02/23/25 17:25
Last Documented Vital Signs
Temp Pulse Resp BP Pulse Ox
98.5 F 85 18 152/91 100
02/23/25 17:25 02/23/25 17:25 02/23/25 17:25 02/23/25 17:25 02/23/25 17:25
MDM/Problems Addressed
MDM/Problems Addressed:
44-year-old female with history of Crohn's disease, HTN presents for dog bite of her right hand. Her sister who is with her owns a grooming salon. They were in the salon when a passerby came in with her small dog wondering what services were
available. The patient reached down to pet the dog and the dog was 'nervous' (according to the shop van owner operator/sister) and bit her.The pet's van owner operator became flustered, told them the dog's Rabies vaccines are not up to date and ran out of the shop. They
have no contact information.
Pt's sister, who owns the shop, states she is very familiar with animals and feels certain this dog does not have rabies. They still are considering getting the Rabies immunizations but want to check to see if insurance will cover it.
It is Good Wednesday and most likely won't get in contact with Insurance for 3 days, Wednesday after . Informed that if they are concerned about rabies the series should start as soon as possible
They are requesting the tetanus immunization only at this time.
The cleansed the wounds immediately with soap and H202.
Unsure of last Tdap.
The bite lilly are relatively superficial, a few deep clean abrasions, no erythema, no drainage, no bony tenderness.
Very low suspicion of dog being rabid.
Pt found that her insurance will cover.
Rabies immunization vaccines started
*Critical Care Note
Total Time (30-74mins, 75-104mins- exclusive of procedures): Not Applicable
ED Attending Note
-
Portions of this chart may have been created with voice recognition software.� Occasional wrong word or��sound alike� substitutions may have occurred due to the inherent limitations of voice recognition software.
Discharge Plan
Departure
Patient Disposition: Home (Routine Discharge)
Date of Disposition: 02/23/25
Time of Disposition: 20:36
Patient with high blood pressure during this ER visit?: No
Condition: Good
Discharge Problem:
Dog bite of right hand
Instructions: Animal Bites (DC), Rabies Vaccine
Prescriptions:
New
RabAvert (PF) 2.5 unit suspension for reconstitution
2.5 unit IM ONCE Qty: 3 0RF
Rx Instructions:
Give on the following dates: 02/26, 03/02 and 03/09
No Action
loperamide 2 mg Capsule
2 mg PO QID PRN (Reason: diarrhea)
bisoprolol fumarate 10 mg Tablet
10 mg PO QPM
drospirenone-ethinyl estradiol [Vestura (28)] 3-0.02 mg Tablet
1 tab PO DAILY@1999
Dificid 200 mg Tablet
200 mg PO BID Qty: 20 0RF
prednisone 10 mg tablet
10 mg PO DIRECTED Qty: 74 0RF
Rx Instructions:
4 tabs daily x1 week, 3 tabs daily x1 week, 2 tabs daily x1 week, 1 tab daily x1 week, 1/2 tab daily x1 week.
cholecalciferol (vitamin D3) 50 mcg (2,000 unit) Tablet
50 mcg PO DAILY Qty: 0 0RF
Stand Alone Forms: Rabies Vaccine Post Exp Dosing
Activity Restrictions/Additional Instructions:
As we discussed, call the [facility] first thing Wednesday morning and make appointments for your next 3 vaccines.
Interventions
Interventions:
*Risk Screen - Suicide Last Done: 02/23/25 19:46
*General Assessment Last Done: 02/23/25 19:46
*Neglect/Abuse Screening Last Done: 02/23/25 19:46
*ED COVID-19 Vaccine History Last Done: 02/23/25 19:46
*Nursing Disposition Last Done: 02/23/25 21:33
ED-Skin Assessment Last Done: 02/23/25 19:46
Discharge Date and Time
Discharge Date/Time: 02/23/25 21:45
Print Language: Mozambican
[2025-02-23] MEDS: ADACEL 0.5 ML IM (20:18)
[2025-02-23] MEDS: RABAVERT RABIES VACC W-DILUENT 2.5 UNIT IM (21:05)
[2025-02-23] MEDS: HyperRAB 1260 UNIT IM (21:30)
== END 2025-02-23 21:45 | disposition home or self-care (01) ==
LOC: EMR 17:20
PROVIDERS: EMERGENCY PHYSICIAN Emergency Medicine; FAMILY PHYSICIAN Nurse Practitioner Family
DX: S61.451A Open bite of right hand, initial encounter (principal); W54.0XXA Bitten by dog, initial encounter; Z23 Encounter for immunization; Z20.3 Contact with and (suspected) exposure to rabies; Z29.14 Encounter for prophylactic rabies immune globulin; I10 Essential (primary) hypertension
CPT/HCPCS: 99284; 96372; 90471; 90375; 90675; 90715

== ENCOUNTER 2025-03-02 15:21 | Outpatient (RCR) | payer OTHER, SELFPAY ==
[2025-02-26 10:45] VITALS: BP 135/87
[2025-02-26] MEDS: RABAVERT RABIES VACC W-DILUENT 2.5 UNIT IM (10:46)
[2025-03-02 15:36] VITALS: BP 132/93
[2025-03-02] MEDS: RABAVERT RABIES VACC W-DILUENT 2.5 UNIT IM (15:47)
== END 2025-03-05 10:07 | disposition home or self-care (01) ==
LOC: OID 15:21
PROVIDERS: ATTENDING PHYSICIAN Emergency Medicine
DX: Z20.3 Contact with and (suspected) exposure to rabies (principal); Z23 Encounter for immunization
CPT/HCPCS: 90471; 90675

== ENCOUNTER 2025-03-09 15:22 | Outpatient (RCR) | payer OTHER, SELFPAY ==
[2025-03-09 15:29] VITALS: BP 154/96
[2025-03-09] MEDS: RABAVERT RABIES VACC W-DILUENT 2.5 UNIT IM (15:35)
== END 2025-03-12 10:14 | disposition home or self-care (01) ==
LOC: OID 15:22
PROVIDERS: ATTENDING PHYSICIAN Emergency Medicine
DX: Z20.3 Contact with and (suspected) exposure to rabies (principal); Z23 Encounter for immunization
CPT/HCPCS: 90471; 90675

== ENCOUNTER 2025-03-13 05:53 | Emergency (ER) | payer OTHER, SELFPAY ==
[2025-03-13 05:55] VITALS: BP 158/104
--- NOTE | 2025-03-13 06:45 | ED.GENMED ---
History of Present Illness
General
Chief Complaint: Breathing Problem
Time Seen by Provider: 03/13/25 06:30
History of Present Illness
History of Present Illness:
44-year-old Bhutanese speaking female with history of Crohn's disease presents to the emergency department for evaluation of right-sided to mid thoracic back pain associated with shortness of breath for the past 1 to 2 weeks. She reports initially
having chest pain and cough at the onset of illness but now only the back pain and dyspnea remains. No fevers, chills, night sweats, URI symptoms, purulent sputum, nausea, or vomiting. Denies any calf swelling or leg pain. Does not take any
exogenous hormones. She is not on any immunomodulators for Crohn's.
Past History
Past History
ED Past Medical History: HTN and Other (Crohn's)
ED Past Surgical History: and Gynecological
Review of Systems
Review of Systems
Allergies reviewed?: Yes
All Other Systems: ROS reviewed and negative except as documented in HPI and ROS
Phy Exam
Physical Exam
Physical Exam:
GEN: Well appearing, NAD, WDWN
HEENT: Oral mucosa moist, no scleral icterus
Cardiac: Regular rate and rhythm, no murmurs
Lung: No respiratory distress, no tachypnea, lungs clear to auscultation bilaterally however diminished inspiratory effort due to pain
MSK: No gross deformity or injuries, no reproducible tenderness to the thoracic spine or paraspinous musculature. No calf swelling
Skin: Good color, no pallor or jaundice, no rashes
Neuro: AO x3, moves all extremities freely
Psych: Calm, cooperative
Course
Orders/Labs/Results
Orders:
Orders
03/13/25 06:45
Test Result ONCE
CR Chest - 2 Views Urgent
Comment:
Reason For Exam: CP/SOB
03/13/25 06:57
Complete Blood Count/No Diff Urgent
Comprehensive Metabolic Panel Urgent
D-Dimer Urgent
HCG, Serum Qualitative Screen Urgent
03/13/25 07:39
Ketorolac [Toradol] 15 mg IV NOW STA
Abnormal Lab Results
03/13/25
06:57
WBC 12.1 H 10^3/uL
(4.8-10.8)
MCH 32.6 H pg
(27.0-31.0)
Chloride 108 H mmol/L
(98-107)
03/13/25 06:57
03/13/25 06:57
Vital Signs
Initial and Last Documented VS:
Initial Vital Signs
Temp Pulse Resp BP Pulse Ox
97.3 F 74 18 158/104 100
03/13/25 05:55 03/13/25 05:55 03/13/25 05:55 03/13/25 05:55 03/13/25 05:55
Last Documented Vital Signs
Temp Pulse Resp BP Pulse Ox
97.3 F 78 16 126/74 98
03/13/25 05:55 03/13/25 08:34 03/13/25 08:34 03/13/25 08:34 03/13/25 08:34
MDM/Problems Addressed
MDM/Problems Addressed:
44-year-old female presenting with thoracic back pain and difficulty breathing. Chest x-ray shows no evidence for infiltrate or effusion. Negative D-dimer rules out PE. Given that she initially developed coughing with the symptoms this may
represent a viral pleurisy versus a musculoskeletal strain. Due to history of Crohn's we will avoid repeated doses of NSAIDs, prescribed steroids and muscle relaxants for supportive care
*Critical Care Note
Total Time (30-74mins, 75-104mins- exclusive of procedures): Not Applicable
ED Attending Note
-
Portions of this chart may have been created with voice recognition software.� Occasional wrong word or��sound alike� substitutions may have occurred due to the inherent limitations of voice recognition software.
Discharge Plan
Departure
Patient Disposition: Home (Routine Discharge)
Date of Disposition: 03/13/25
Time of Disposition: 08:23
Patient with high blood pressure during this ER visit?: No
Discharge Problem:
Pleurisy
Instructions: Pleurisy
Prescriptions:
New
methylprednisolone [Medrol (Hollis)] 4 mg tablets,dose pack
See Rx Instructions .ROUTE .COMPLEX Qty: 21 0RF
Rx Instructions:
orally per package directions
methocarbamol 750 mg tablet
750 mg PO Q8H PRN (Reason: pain) Qty: 20 0RF
No Action
loperamide 2 mg Capsule
2 mg PO QID PRN (Reason: diarrhea)
bisoprolol fumarate 10 mg Tablet
10 mg PO QPM
Dificid 200 mg Tablet
200 mg PO BID Qty: 20 0RF
RabAvert (PF) 2.5 unit suspension for reconstitution
2.5 unit IM ONCE Qty: 3 0RF
Rx Instructions:
Give on the following dates: 02/26, 03/02 and 03/09
acetaminophen [Tylenol] 325 mg Tablet
650 mg PO Q6H PRN (Reason: pain)
Referrals:
UNKNOWN - PT DOES,NOT KNOW [Family Provider] -
Interventions
Interventions:
*Risk Screen - Suicide Last Done: 03/13/25 05:55
*General Assessment Last Done: 03/13/25 06:39
*Neglect/Abuse Screening Last Done: 03/13/25 05:55
*ED- Fall Risk Assessment Last Done: 03/13/25 06:39
*ED COVID-19 Vaccine History Last Done: 03/13/25 06:39
*Nursing Disposition Last Done: 03/13/25 08:34
ED- Cardiac Assessment Last Done: 03/13/25 06:39
ED- Pulmonary Assessment Last Done: 03/13/25 06:39
Discharge Date and Time
Discharge Date/Time: 03/13/25 08:35
Print Language: Bhutanese
[2025-03-13 07:10] LABS: Hematocrit 40.2 % (37.0-47.0); Hemoglobin 13.8 g/dL (12.0-16.0); Mean Corp Hgb Conc. 34.3 g/dL (33.0-37.0); Mean Corpuscular Hgb 32.6 pg (27.0-31.0); Mean Platelet Volume 9.4 fL (7.4-10.4); Platelet Count 323 10^3/uL (130-400); Red Blood Cell Count 4.23 10^6/uL (4.20-5.40); Red Cell Dist. Width 13.8 % (11.5-14.5); White Blood Cell Count 12.1 10^3/uL (4.8-10.8)
[2025-03-13 07:26] LABS: HCG, Serum Qualitative Screen Negative
[2025-03-13 07:33] LABS: D-Dimer < 0.27 ug/mlFEU (0.00-0.50)
[2025-03-13] MEDS: TORADOL 15 MG IV (07:59)
[2025-03-13 08:18] LABS: ALT (SGPT) < 10 U/L (0-35); AST (SGOT) 18 U/L (14-36); Alkaline Phosphatase 41 U/L (38-126); Blood Urea Nitrogen 14 mg/dl (7-17); Calcium 9.7 mg/dl (8.4-10.2); Carbon Dioxide 25 mmol/L (22-30); Chloride 108 mmol/L (98-107); Glucose 89 mg/dl (70-99); Potassium 4.8 mmol/L (3.5-5.1); Sodium 141 mmol/L (135-145); Total Bilirubin 0.6 mg/dl (0.2-1.3); Total Protein 6.8 g/dl (6.3-8.2); eGFR > 60.00
[2025-03-13 08:34] VITALS: BP 126/74
== END 2025-03-13 08:35 | disposition home or self-care (01) ==
LOC: EMR 05:53
PROVIDERS: Physician Assistant; EMERGENCY PHYSICIAN Student in an Organized Health Care Education/Training Program
DX: R09.1 Pleurisy (principal); K50.90 Crohn's disease, unspecified, without complications; I10 Essential (primary) hypertension
CPT/HCPCS: 99284; 96374; 71046; 80053; 84703; 85027; 85379